=== PATIENT | male | born 1980 | race Caucasian/White ===

== ENCOUNTER 2020-11-17 20:18 | Observation (INO) | payer OTHER ==
[~2020-11-17] VITALS: Ht 180.3 cm; Wt 131.5 kg
[2020-11-17] MEDS ORDERED: DICLOFENAC SOD100 GM TOP (20:30)
[2020-11-17] MEDS ORDERED: ABILIFY MYCITE5 M1 PO (20:30)
[2020-11-17] MEDS ORDERED: SERT25 PO (20:31)
[2020-11-17] MEDS ORDERED: TRAZ50 PO (20:32)
[2020-11-17 23:38] LABS: SARS-Cov-2 (COVID-19) PCR, MMC NEGATIVE (NEGATIVE)
--- NOTE | 2020-11-18 01:57 | NUR ---
11/18/20 0157 Nia Starkey History, Chart, Medications and Allergies reviewed before start of procedure.PATIENT DETERMINED TO BE ASA APPROPRIATE FOR PROPOFOL SEDATION PRIOR TO START OF PROCEDURE BY . CALLED AND DISCUSSED WITH DR. BETANCUR EARLIER. PER ANETHESIOLOGIST PT OZIEL FOR NURSE ADMINISTERED PROPOFOL SEDATION.MONITOR INTACT WITH CONTINUOUS PULSE OXIMETRY AND INTERMITTENT BP.3-LEAD EKG REVIEWED WITH PHYSICIAN PRIOR TO START OF PROCEDURE.O2 VIA POM INTACT THROUGHOUT SEDATION/PROCEDURE.
--- NOTE | 2020-11-18 08:54 | NUR ---
ADMITTED S/P SCOPE FOR REMOVAL OF FOREIGN BODY FOR FULL RECOVERY OF ANESTHESIA BEFORE PT CAN BE DISCHARGED TO DRIVE 80 MILES HOME. PT IN NO DISTRESS. RESP APPEAR EVEN AND UNLABORED.
--- NOTE | 2020-11-18 13:09 | NUR ---
FACILITY DISCHARGE ORDERED IN ERROR, PT TO BE DISCHARGED HOME PER DR. LUNA
--- NOTE | 2020-11-18 13:24 | NUR ---
DISCHARGE: PACKET PRINTED AND PT EDUCATED. NO NEW MEDS, IV DC'D WNL. PT DENIED NEED FOR WHEELCHAIR. LEFT UNIT AT 1320 ON FOOT.
== END 2020-11-18 13:20 | disposition home or self-care (01) ==
LOC: ER 20:18 → SURS 20:19 → ER 11-18 01:20 → EDBEDREQTM 11-18 04:35 → EDBEDREQ 11-18 04:35 → SURS 11-18 06:12
PROVIDERS: ADMIT Internal Medicine Gastroenterology
PROC: 0D758ZZ Dilation of Esophagus, Via Natural or Artificial Opening Endoscopic (ICD-10-PCS; principal; 2020-11-18 01:30)
PROC: 0DC68ZZ Extirpation of Matter from Stomach, Via Natural or Artificial Opening Endoscopic (ICD-10-PCS; 2020-11-18 01:30)
PROC: 0DB68ZZ Excision of Stomach, Via Natural or Artificial Opening Endoscopic (ICD-10-PCS; 2020-11-18 01:30)
DX: K22.2 Esophageal obstruction (principal); T18.128A Food in esophagus causing other injury, initial encounter; K31.7 Polyp of stomach and duodenum; X58.XXXA Exposure to other specified factors, initial encounter; Z20.822 Contact with and (suspected) exposure to COVID-19
CPT/HCPCS: 88305; 88342; 99285; A9270; G0378; J2250; J2704; J7120; U0004